=== PATIENT | male | born 2000 | race Caucasian/White ===

== ENCOUNTER 2022-11-20 13:45 | Emergency (ER) | payer OTHER, SELFPAY ==
--- NOTE | ~2022-11-20 | XR_ITS ---
EXAM: XR knee LT min 4V DATE: 11/20/2022 15:11 HISTORY: knee/calf pain, limping s/p fall off ladder . COMPARISON: None available. FINDINGS: Normal mineralization. No fracture or dislocation. No lytic or blastic lesion. Joint space s are maintained. No erosion or periosteal change. Soft tissues within normal limits. IMPRESSION: No acute osseous finding in the left knee. Reviewed, dictated and finalized at location K. [employer] SERV[employer]
[2022-11-20 14:20] VITALS: BP 143/76; PULSE 74; RESP 16; TEMP 36.8; O2SAT 96
--- NOTE | 2022-11-20 16:03 | ED.LOWEXIN ---
HPI - Extremity Injury (Lower) General Chief Complaint: Extremity Injury, Lower Stated Complaint: left leg injury - fell off ladder 6ft Time Seen by Provider: 11/20/22 15:32 History of Present Illness HPI Narrative: Patient is a 22-year-old male presenting with left knee pain. Patient was at work when he fell off of a ladder and fell straight down on his left leg. States that his knee locked up as he fell on it. States that he has had pain especially with ambulation since this time. States that he also has some pain in the back of his knee and upper calf. He denies striking his head or injuring anything else. States he took some Tylenol earlier which did provide some relief. Related Data Home Medications Medication Instructions Recorded Confirmed No Home Medications 11/20/22 Allergies Allergy/AdvReac Type Severity Reaction Status Date / Time No Known Allergies Allergy Verified 11/20/22 14:23 Review of Systems Review of Systems: All systems reviewed & are unremarkable except as noted in HPI and below Exam Narrative: GENERAL: Well-appearing, well-nourished, and in no acute distress. HEAD: Normocephalic, atraumatic. EYES: PERRLA and EOMI. ENT: Nares clear, no rhinorrhea or epistaxis. Mucous membranes moist. NECK: Supple. CHEST: Clear to auscultation. No respiratory distress. HEART: Regular rate and rhythm. No murmur heard. Normal peripheral pulses. ABDOMEN: Soft, nontender, nondistended, normal active bowel sounds. EXTREMITIES: Normal range of motion. Normal range of motion of left knee, tenderness along posterior aspect and to proximal left calf, no significant medial or lateral or anterior tenderness, distal DP/PT pulses 2+, no sensory deficits SKIN: Warm, dry, no rash. NEURO: No focal deficits. Alert and oriented x3. PSYCH: Normal mood and affect. Course Vital Signs Vital signs: Vital Signs Temperature 98.3 F 11/20/22 14:20 Pulse Rate 74 11/20/22 14:20 Respiratory Rate 16 11/20/22 14:20 Blood Pressure 143/76 H 11/20/22 14:20 Pulse Oximetry 96 11/20/22 14:20 Oxygen Delivery Room Air 11/20/22 14:20 Temperature 98.3 F 11/20/22 16:34 Pulse Rate 76 11/20/22 16:34 Respiratory Rate 16 11/20/22 16:34 Blood Pressure 126/70 11/20/22 16:34 Pulse Oximetry 100 11/20/22 16:34 Oxygen Delivery Room Air 11/20/22 14:20 MDM - Extremity Injury (Lower) MDM Narrative Medical decision making narrative: Patient is a 22-year-old male presenting with left knee pain after falling off a ladder. X-ray shows no osseous abnormalities. Patient is neurovascularly intact. We will give a dose of IM Toradol for additional pain relief. We will provide crutches to keep weight off of the leg. Advised to follow-up with PCP as well as orthopedic surgery as needed. Appropriate return precautions given. Patient discharged in stable condition. Critical Care Time Critical Care Time Critical Care Time: No Discharge Plan Discharge Clinical Impression: Acute internal derangement of knee Patient Disposition: Home, Self-Care Condition: Stable Instructions: Antibiotic Form, Knee Pain (ED) Additional Instructions: Please follow-up with your primary care provider as well as orthopedic surgery as needed. Please use Tylenol and ibuprofen for pain control. Please apply ice for the first 24 hours. You may use crutches to keep weight off the affected knee. If your pain suddenly worsens, you develop numbness or weakness, or other concerning symptoms arise, please return to the ER. Prescriptions: No Action No Home Medications Follow-up/Referrals: Nikolai Tovar MD [Physician] - PHYSICIAN NOT ON STAFF,NONSTAFF [Primary Care Provider] - Stand Alone Forms: Work/School Release IP
[2022-11-20] MEDS: KETOROLAC 30 MG/ML VIAL (*BKC) IM (16:11)
[2022-11-20 16:34] VITALS: BP 126/70; PULSE 76; RESP 16; TEMP 36.8; O2SAT 100
== END 2022-11-20 16:36 | disposition home or self-care (01) ==
PROVIDERS: Emergency Provider Emergency Medicine
DX: M23.92 Unspecified internal derangement of left knee (principal); S89.92XA Unspecified injury of left lower leg, initial encounter; W11.XXXA Fall on and from ladder, initial encounter
CPT/HCPCS: 73564; 96372; 99283; J1885

== ENCOUNTER → 2023-06-17 14:20 | Outpatient (CLI) | payer OTHER, SELFPAY ==
--- NOTE | ~2023-06-17 | MR_ITS ---
EXAMINATION: MR knee LT wo con DATE: 06/17/2023 14:51 INDICATION: Left knee pain TECHNIQUE: Magnetic resonance imaging (MRI) of the left knee was performed without intravenous contra st. Sequences included coronal PD-weighted FSE, coronal PD-weighted FS FSE, sagittal T2-weighted FSE , sagittal PD-weighted FS FSE and axial PD weighted fat saturated FSE. COMPARISON: Left knee radiographs dated 11/20/2022 FINDINGS: Medial compartment: Medial meniscus is normal. Articular cartilage is normal. Lateral compartment: Vertically oriented linear increased signal extending to the inferior articular surface along the of the inner third and in the peripheral third of the posterior horn of the lateral meniscus, unclear wh ether these represent subcentimeter planes or a contiguous single complex tear. Articular cartilage i s normal. Patellofemoral compartment: Articular cartilage is normal. Ligaments and tendons: The anterior cruciate ligament is torn. Posterior cruciate ligament is normal. The medial collateral ligament and fibular collateral ligament complex are normal. The extensor mechanism is normal. The vi sualized medial and lateral hamstring tendons as well as the iliotibial band are normal. Fluid: Physiologic amount of fluid in the joint space. No loose osteochondral bodies identified. Osseous/other: Bone alignment is normal. No fracture or pathologic marrow replacing process. IMPRESSION: 1. Anterior cruciate ligament tear. 2. Vertical tear planes at the inner and peripheral thirds of the posterior horn of the lateral menis cus, unclear whether separate tear planes or single contiguous complex tear. Reviewed, dictated and finalized at location A. IMPRESSION: 1. Anterior cruciate ligament tear. 2. Vertical tear planes at the inner and peripheral thirds of the posterior hor n of the lateral meniscus, unclear whether separate tear planes or single melisa guous complex tear.
== END ==
PROVIDERS: PCP Emergency Medicine; Visit Provider Emergency Medicine
DX: S83.512D Sprain of anterior cruciate ligament of left knee, subsequent encounter (principal); X58.XXXD Exposure to other specified factors, subsequent encounter
CPT/HCPCS: 73721

== ENCOUNTER 2025-06-10 19:46 | Emergency (ER) | payer SELFPAY ==
--- OUTSIDE RECORDS SUMMARY | 2025-06-10 19:49 | XMS_ITS | Continuity of Care Document ---
Author Organization [facility] Address [address] [place] [address] [place] [address] Phone Care Team Providers Care Refrigeration Service Technician Name Role Phone Jake West MD Unavailable Unavailable Allergies, Adverse Reactions, Alerts Substance Reaction Status Criticality No Known Allergies Active No Inform ation Procedures Procedure Date PREV VISIT, EST, AGE 18-39 OFFICE/OUTPATIENT VISIT, EST PREV VISIT, NEW, AGE 18-39 OFFICE/OUTPATIENT VISIT, NEW Advance Directives Directive Yes / No Effective Date File Name No Information Encounters Encounter Description Practice Location Reason(s) For Visit Diagnoses Date Provider Providers Copied on Encounter PREV VISIT, EST, AGE 18-39 [facility], [address] [place], [place], [id number], tel:[phone] [facility] physical (chief complaint) Encounter for general adult medical examination without abnormal findings 4 Brett Joseph. [address] [place], [id number] , [place]. tel:[phone] OFFICE/OUTPAT IENT VISIT, EST [facility], [address] [place], [place], [id number], [place] tel:[phone] [facility] knee pain1 (chief complaint) Pain in left knee 3 Brett Joseph. [address], [place], [place], [id number] , [place]. tel:[phone] PREV VISIT, NEW, AGE 18-39 [facility], [address] [place], [place], [id number], [place] tel:[phone] [facility] physical (chief complaint) Encounter for general adult medical exam w abnormal findingsPatellar tendinitis, left knee 3 West Jake. [address], [place], [place], [id number] , [place]. tel:[phone] Family History Family Member Type Diagnosis Age At Onset Father Problem Alive and well Mother Problem Alive and well Sister Problem Alive and well Payers Payer name Insurance type Covered green party ID Authoriza tion(s) No Information Social History Type Description Quantity Date Captured Comments Alcohol Use Details No Caffeine Use Details Unknown Tobacco Use Status Current non-smoker Smoking Status Never smoker Sex Male Vital Signs Date / Time: Height Weight BMI Pulse Rate Blood Pressure Temperature Respiratory Rate Body Surface Area Head Circumference BMI percentile Pulse Ox Inhaled Ox 2:25 PM 64.00 in 202.80 lbs 34.8 1 kg/m eter (2) 67 /min 130/72 mm[Hg] 98.0 F 16 /min Chief Complaint And Reason For Visit From encounter dated '06/30/2024 14:19'. physical (chief complaint). 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 Pt overall feels well Pt denies any active complaints Plan Of Treatment Date Type Action Status Referral Ordered: [facility] -Allopathic & Osteopathic Physicians : Orthopaedic Surgery (related to Pain in left knee) ordered Referral Ordered: MRI JNT OF LWR EXTRE W/O DYE Left knee ordered Referral Referred To: [facility] [address], [place], [id number] Ordered: Referrals: Allopathic & Osteopathic Physicians : Orthopaedic Surgery. [facility]. Evaluate and treat ordered Referral Ordered: Physical Therapy (related to Encounter for general adult medical examination without abnormal findings) ordered Referral Referred To: Physical Therapy Ordered: Referrals: Physical Therapy. 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 Pt overall feels well Pt denies any active complaints knee pain1 Pt c/o persisten t dull and sharp left knee pain around left patella area for 6 months Pt notices intermittent left knee swelling as well, especially after standing on it for long time Pt also has pain at night when resting Pt denies any redness or warmth Pt denies any calf pain pt has done 12 sessions of PT but has not helped. Pt states that sometimes he feels that his left knee is giving out as well physical Pt needs annual physical Pt fell off ladder around 4 feet about 4 months ago and he fell on left foot and he started to have left knee pain after he fell Pt did notice left knee swelling shortly afterward but the swelling resolved now. Pt c/o persistent left knee pain, dull in nature, especially after standing on his feet all day Pt denies any night time pain. Pt states that he feels that his left knee dov sometimes. He c/o left anterior lower patella area pain. Pt went to ER and had negative left knee x ray several months ago pt denies any other complaints Instructions Date Instruction Additional Infor mation No Information Assessments Type Assessment Date assessment Encounter for genera l adult medical examination without abnormal findings Mental Status Date Cognitive Assessment Orientation - Onida ed to time, place, person, situation.
--- OUTSIDE RECORDS SUMMARY | 2025-06-10 19:49 | XMS_ITS | Continuity of Care Document ---
Author Organization [facility] Address [address] [place] [address] Phone Care Team Providers Care Division Operations Manager Name Role Phone Ramirez Rod PT Unavailable Unavailable Procedures Procedure Date Progress Note Therapeutic Activities Neuromuscular Re-Ed Therapeutic Exercise Therapeutic Activities Neuromuscular Re-Ed Electrical Stimulation Therapeutic Exercise Therapeutic Activities Neuromuscular Re-Ed Manual Therapy Therapeutic Activities Neuromuscular Re-Ed Manual Therapy Hot or Cold Pack Therapeutic Activities Neuromuscular Re-Ed Therapeutic Activities Neuromuscular Re-Ed Therapeutic Exercise Manual Therapy Therapeutic Activities Neuromuscular Re-Ed Therapeutic Exercise Manual Therapy Therapeutic Activities Neuromuscular Re-Ed Therapeutic Exercise Manual Therapy Therapeutic Activities Neuromuscular Re-Ed Therapeutic Exercise Therapeutic Activities Neuromuscular Re-Ed Therapeutic Exercise PT Evaluation Low Complexity Therapeutic Activities Neuromuscular Re-Ed Advance Directives Directive Yes / No Effective Date File Name No Information Encounters Encounter Description Practice Location Reason(s) For Visit Diagnoses Date Provider Providers Copied on Encounter [facility], [address] [address], [place], [place], [id number], tel:[phone] [place] No Information 3 Dellamano Ramirez. . [facility] [address], [place], [place], [id number], tel:[phone] [place] No Information 3 Dellamano Ramirez. . Referring Provider: Bunny Allen [facility] [address], [place], [address]. tel:[phone] [facility] [address] [place] [address], [id number], tel:[phone] [place] No Information 3 Muehl Richardson. [address] [facility], [address], [facility], [place]. tel:[phone] Referring Provider: Bunny Allen [facility], [place], [address]. tel:[phone] [facility] [address] [place] [address], [id number], tel:[phone] [place] No Information 3 Muehl Richardson. [address] [facility], [facility] [address], [place], [facility], [place]. tel:[phone] Referring Provider: Bunny Allen [facility], [place], [address]. tel:[phone] [place] [address], [id number], tel:[phone] [place] No Information 3 Short Thania. . Referring Provider: Bunny Allen [facility], [place], [address]. tel:[phone] [facility] [address], [place], [place], [id number], [place] tel:[phone] [place] No Information Javon-1 2-202 3 Modglin Dorian. . Referring Provider: Bunny Allen [address], [place], [address]. tel:[phone] [place] [address] [address], [place], [place], [id number], [place] tel:[phone] [place] [address] No Information Javon-0 9-202 3 Modglin Dorian. . Referring Provider: Bunny Allen [address], [place], [address]. tel:[phone] [place] [address] [address], [place], [place], [id number], [place] tel:[phone] [place] No Information Javon-0 5-202 3 Dellamano Ramirez. . Referring Provider: Bunny Allen [address], [place], [address]. tel:[phone] [place] [address] [address] [facility] [facility], [place], [place], [id number], [place] tel:[phone] [place] No Information Javon-0 2-202 3 Dellamano Ramirez. . Referring Provider: Bunny Allen [address], [place], [address]. tel:[phone] [place] [address] [address], [place], [place], [id number], [place] tel:[phone] [place] No Information March-3 0-202 3 Dellamano Ramirez. . Referring Provider: Bunny Allen [address], [place], [address]. tel:[phone] [place] [address] [address], [place], [place], [id number], [place] tel:[phone] [place] No Information May-2 6-202 3 Dellamano Ramirez. . Referring Provider: Bunny Allen [address], [place], [address]. tel:[phone] [facility], [address], [place], [place], [id number], tel:[phone] [place] No Information Marcel Guzmán. . Referring Provider: Jake West, [address], [place], [address]. tel:[phone] Family History Family Member Type Diagnosis Age At Onset No Information Payers Payer name Insurance type Covered libertarian ID Authoriza tion(s) No Information Social History Type Description Quantity Date Captured Comments Sex Male Smoking Status No Information Chief Complaint And Reason For Visit No Information Reason For Referral Reason For Referral No Information Plan Of Treatment Date Type Action Status Referral Ordered: PCP timeframe: 1 week. (related to Overweight) ordered Referral Ordered: Weight management: Referral to physician timeframe: 1 Month. (related to Overweight) ordered History Of Present Illness Encounter Date Complaint History Of Prese nt Illness No Information Functional Status Date Functional Assessmen t No Information Instructions Date Instruction Additional Infor mation No Information Assessments Type Assessment Date No Information Patient Care Teams Name Effective Dates (start - stop) Status Members No Information
--- OUTSIDE RECORDS SUMMARY | 2025-06-10 19:49 | XMS_ITS | Clinical Summary ---
Author Organization [facility] Address [address] [place] [address] Care Team Providers Care Pocket Closer Name Role Phone Unavailable Primary Care Provider Unavailabl e Source Comments [facility],non-owned Affiliates and Associated Physician Practices is amultiple site organization consisting of ambulatory clinics and hospital sitesin [place], [place], [place] and [place]. This disclosure is being madepursuant to the Care Everywhere program and may not contain all information available regarding this patient. Last updated 18.[facility] Allergies No known active allergies Medications * Be aware that medications may not be up to date on this document. Alwaysverify current medications with the patient. 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 Gender Identity Not on file Sexual Orientation Not on file Last Filed Vital Signs Vital Sign Reading Time Taken Comments Blood Pressure 126/78 01/01/2020 12:20 PM RENEWABLE ENERGY PROJECT MANAGER Pulse 76 01/01/2020 12:17 PM RENEWABLE ENERGY PROJECT MANAGER Temperature 37.1 C (98.7 F) 01/01/2020 12:17 PM RENEWABLE ENERGY PROJECT MANAGER Respiratory Rate 16 01/01/2020 12:17 PM RENEWABLE ENERGY PROJECT MANAGER Oxygen Saturation 99% 01/01/2020 12:17 PM RENEWABLE ENERGY PROJECT MANAGER Inhaled Oxygen Concentration - - Weight 87.1 kg (192 lb) 01/01/2020 12:17 PM RENEWABLE ENERGY PROJECT MANAGER Height 163.8 cm (5' 4.5) 01/01/2020 12:17 PM CS T Body Mass Index 32.45 01/01/2020 12:17 PM RENEWABLE ENERGY PROJECT MANAGER Plan of Treatment Health Maintenance Due Date Last Done Comments HIV SCREENING 2017 HPV VACCINE (1 - Male 3-dose series) 2017 MENINGOCOCCAL (Group B) VACC INE SHARED DECISION-MAKING (1 of 2 - Standard) 2018 HEPATITIS C SCREENING 04/06/2020 DTAP/TDAP/TD VACCINES (1 - Tdap) 2021 HEPATITIS B VACCINE (1 of 3 - 19+ 3-dose series) 2021 COVID-19 VACCINE (1 - 2023-2 5 season) 2024 DEPRESSION SCREENING 11/24/2024 INFLUENZA VACCINE (#1) 2025 ZOSTER VACCINE (1 of 2) 2052 HIB VACCINE Aged Out No longer eligi ble based on patient's age to complete this topic MENINGOCOCCAL GROUPS A/C/Y/W VACCINE Aged Out No longer eligible b ased on patient's age to complete this topic PNEUMOCOCCAL VACCINE Aged Out No long er eligible based on patient's age to complete this topic
--- OUTSIDE RECORDS SUMMARY | 2025-06-10 19:49 | XMS_ITS | Data Portability ---
[facility] [address] [place] [address] [place] [address] Assessment Encounter Date Assessment Date Assessment LastModified by Organization Details LastModified Time 02/18/2025 02/18/2025 Patient here for medical screening to get a TB skin test for work Exam within normal limits patient denies any acute complaints Plan to order the labs as requested Provided pt return precautions as needed. Not available 02/18/2025 19:55:32 Plan of Treatment Reminders Order Date Submit Date Provider Last Modified By Organization Details Last Modified Time Details Appointments None recorded. Lab PPD (purified protein derivativ e), skin test 2024 025 SUSANA In-Office Order, Internal Use Only DO Not Attach Compendium DO Not Attach Compendium, Do Not Delete/merge, [id number] 12:41:45 Referral None recorded. Procedures None recorded. Surgeries None recorded. Imaging None recorded. Medication Orders Tubersol 5 tub. unit/0.1 mL intraderm al injection solution 2024 025 [email or web address] Not available 20:18:04 Patient TargetsNo targets recorded. Patient Instructions Encounter Date Encounter Id Patient Instructions Last Modified By Organization Details Last Modified Time 02/18/2025 [id number] A healthy lifestyle: care instructions Not available 02/18/2025 19:55:08 Your TB test chip l need to be read within 48-72 hours You may return here to have that completed Continue to follow up with your PCP for your routine visits As always you can return here for any other concerns, thank you for choosing [facility]. Not available 02/18/2025 19:55:36 Reason for Referral None Reported. Results Created Date Observation Date Name Description Value Unit Range Abnormal Flag Note LastModifiedBy Organization Detail LastModifiedTime 02/22/2002/21/2025 PPD (leah fied prote in deriv ative ), skin test Result Negati ve Not Available In-Office Order Internal Use Only DO Not Attach Compendium DO Not Attach Compendium, Do Not Delete/merge, [id number] 02/18/2025 19:55:00 Result Notes None recorded. Problems No Known Problems Medical Equipment None Reported. Allergies No known drug allergies Medications Name Sig Start Date Stop Date Status Note LastModified by Organization Details LastModified Time Tubersol 5 tub. unit/0.1 mL intradermal injection solution Administer .1ml interdermal ly 2024 active Not Available Not Available Not Avai lable Vitals Date Recorded Body height Body mass index (BMI) Body weight Oxygen saturation Oxygen saturation in Arterial blood by Pulse oximetry Heart rate Respiratory rate Body temperature Systolic And Diastolic Provider Name and Address Organization Details Last Updated DateTime 162.56 cm 34.9 kg/m2 93290.9 7 g 98 % 98 % 86 /min 16 /min 98.1 [degF] 130/81 mm[Hg] Mary Sahu MA [facility] 19:52:18 Social History Question Answer Notes LastModified by Organizat ion Details LastModified Time Tobacco Smoking Status Never Smoker Mary Sahu [place] null, [place] - [place] 02/18/2025 19:53:28 Are You Blind Or Do You Have Difficulty Seeing? No Information not available 02/18/2025 What Is Your Level Of Caffeine Consumption? Occasional Information not available 02/18/2025 Are You Deaf Or Do You Have Serious Difficulty Hearing? No Information not available 02/18/2025 What Type Of Diet Are You Following? REGULAR Information not available 02/18/2025 Are There Any Guns Present In Your Home? No Information not available 02/18/2025 What Was The Date Of Your Most Recent Tobacco Screening? 02/18/2025 Information not available 02/18/2025 Do You Use Your Seat Belt Or Car Seat Routinely? Yes Information not available 02/18/2025 Do You Have Smoke And Carbon Monoxide Detectors In Your Home? Yes Information not available 02/18/2025 Are You Passively Exposed To Smoke? No Information not available 02/18/2025 Do You Use Sunscreen Routinely? No Information not available 02/18/2025 Has Tobacco Cessation Counseling Been Provided? No Information not available 02/18/2025 Sex: Male Functional Status Question Answer Note LastModified by Organizat ion Details LastModified Time Do you use any illicit or recreational drugs? No Information not available 02/18/2025 Do you or have you ever used any other forms of tobacco or nicotine? No Information not available 02/18/2025 What is your level of alcohol consumption? None Information not available 02/18/2025 Are you able to care for yourself? Yes Information not available 02/18/2025 What is your exercise level? None Information not available 02/18/2025 Mental Status Question Answer Note LastModified by Organization D etails LastModified Time Do you feel stressed (tense, restless, nervous, or anxious, or unable to sleep at night)? [id number] Information not available 02/18/2025 Family History Relationship Description Onset Age of this Age Resolved Age Notes LastModified by Organization Details LastModified Time Father No current problems or disability [email or web address] Not available 01/23 19:53:13 Mother No current problems or disability [email or web address] Not available 01/23 19:53:13 Medical History Condition Response Coronary Artery Disease N Other N Atrial Fibrillation N High Blood Pressure N Thyroid Problems N Kidney or Bladder Problems N Depression N COPD N Blood Clots N GI Problems N Have you had a mammogram in the last yea r? N Skin Problems N Eating Disorder N Anemia N Heart Attack ([place]) N Diabetes N Anxiety Disorder N Muscle, Joint, or Bone Problems N Seizures/Epilepsy N Have you had a colonoscopy in the last 1 0 years? N Arthritis N Acid Reflux (GERD) N Cancer N Stroke N Allergies N Asthma N Have you had a PSA blood test in the las t year? N ADHD N Substance Abuse N High Cholesterol N Hepatitis N Liver Disease N Schizophrenia N Headaches N Osteoporosis N Heart Failure N Past Encounters Encounter ID Performer Location Encounter Start Date Encounter Closed Date Diagnosis/Indication Diagnosis SNOMED-CT Code Diagnosis ICD10 Code Diagnosis Note [id number] [facility] [address] 02/18/2025 19:41:49 02/21/2025 17:10:52 Obesity 903194172 E66.9 Tuberculos is screening 924594090 Z11.1 Health Concerns Section Related Observation LastModified by Organization Detai ls LastModified Time None Recorded Concern Status LastModified by Organization Details LastModified Time None Recorded Advance Directives Directive None Recorded Payers Insurance Date Sequence Insurance Name Policy Number Policy Leigh Covered Member ID Leigh Member ID Guarantor Name 02/22/2025 1 WEST - [facility]WEST () Rick Alberto [id number] David Mosley 02/22/2025 1 EAST - HUMAN () Bre Dominguez [id number] David Mosley 02/22/2025 2 EAST - [facility] () David Mosley [id number] David Mosley 02/18/2025 1 EAST - HUMAN () Bre Dominguez [id number] David Mosley Notes Date Note Type Note Provider Name and Address Organization Details Recorded Time 02/18/2025 text/html David Mosley is a 4 2 y/o male who presents today to get a TB skin test for work. This is his second test. Denies any medical complaints or concerns. PJ MURILLO NP Attn: [employer]ing,[address] [place], [address], [facility] 02/18/2025 19:56:36
[2025-06-10 20:04] VITALS: BP 158/91; PULSE 108; RESP 16; TEMP 36.8; O2SAT 99
--- NOTE | 2025-06-10 21:30 | PC.NURSE ---
Patient approached triage desk stating that he was going to leave because he scheduled an appointment with urgent care for in the morning. Pt ambulatory to ED exit with steady gait and no signs for concern at this time.
--- OUTSIDE RECORDS SUMMARY | 2025-06-10 23:10 | XMS_ITS | Clinical Summary ---
Author Organization [facility] Address [address] [place] [address] Care Team Providers Care Wet Wheeler Name Role Phone Unavailable Primary Care Provider Unavailabl e Source Comments [facility],non-owned Affiliates and Associated Physician Practices is amultiple site organization consisting of ambulatory clinics and hospital sitesin [place], [place], [place] and [place]. This disclosure is being madepursuant to the Care Everywhere program and may not contain all information available regarding this patient. 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
--- OUTSIDE RECORDS SUMMARY | 2025-06-10 23:10 | XMS_ITS | Continuity of Care Document ---
Author Organization [facility] Address [address] [place] [address] Phone Care Team Providers Care Rolled Ham Lacer Name Role Phone Jake West MD Unavailable [...] on Encounter PREV VISIT, EST, AGE [age] [facility], [address] [place], [place], [id number], tel:[phone] [facility] physical (chief complaint) Encounter for general adult medical examination without abnormal findings 4 Brett Joseph. [address] [facility] [place], [id number] , [place]. tel:[phone] OFFICE/OUTPAT IENT VISIT, EST [facility], [address] [place], [id number], [place] tel:[phone] [facility] knee pain1 (chief complaint) Pain in left knee 3 Brett Joseph. [address], [place], [place], [id number] , [place]. tel:[phone] PREV VISIT, NEW, AGE 18-41 [facility], [address] [place], [id number], [place] tel:[phone] [facility] physical (chief complaint) Encounter for general adult medical exam w abnormal findingsPatellar tendinitis, left knee 3 West Jake. [address], [place], [place], [address] , [place]. 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 Pt overall [...] Mental Status Date Cognitive Assessment Orientation - [place] ed to time, place, person, situation.
--- OUTSIDE RECORDS SUMMARY | 2025-06-10 23:10 | XMS_ITS | Continuity of Care Document ---
Author Organization [facility] Address [address] [place] [address] Phone Care Team Providers Care Lead Shop Operator Name Role Phone Ramirez Rod PT Unavailable [...] Diagnoses Date Provider Providers Copied on Encounter [facility], [address] [address], [place], [place], [id number], tel:[phone] Clarence No Information 3 Dellamano Ramirez. . [facility] [address], [place], [place], [id number], tel:[phone] Clarence No Information 3 Dellamano Ramirez. . Referring Provider: Bunny Allen [facility] [address], [place], [address]. tel:[phone] [facility] [address] [place] [address], [id number], tel:[phone] Clarence No Information 3 Muehl Richardson. [address] [facility], [address], [facility], [place]. tel:[phone] Referring Provider: Bunny Allen [facility], [place], [address]. tel:[phone] [facility] [address] [place] [address], [id number], tel:[phone] Clarence No Information 3 Muehl Richardson. [address] [facility], [facility] [address], [place], [facility], [place]. tel:[phone] Referring Provider: Bunny Allen [facility], [place], [address]. tel:[phone] [place] [address], [id number], tel:[phone] Clarence No Information 3 Short Thania. . Referring Provider: Bunny Allen [facility], [place], [address]. tel:[phone] [facility] [address], [place], [place], [id number], [place] tel:[phone] Clarence No Information Javon-1 2-202 3 Modglin Dorian. . Referring Provider: Bunny Allen [address], [place], [address]. tel:[phone] [place] [address] [address], [place], [place], [id number], [place] tel:[phone] [place] [address] No Information Javon-0 9-202 3 Modglin Dorian. . Referring Provider: Bunny Allen [address], [place], [address]. tel:[phone] [place] [address] [address], [place], [place], [id number], [place] tel:[phone] Clarence No Information Javon-0 5-202 3 Dellamano Ramirez. . Referring Provider: Bunny Allen [address], [place], [address]. tel:[phone] [place] [address] [address] [facility], [place], [place], [id number], [place] tel:[phone] Clarence No Information Javon-0 2-202 3 Dellamano Ramirez. . Referring Provider: Bunny Allen [address], [place], [address]. tel:[phone] [place] [address] [address], [place], [place], [id number], [place] tel:[phone] Clarence No Information March-3 0-202 3 Dellamano Ramirez. . Referring Provider: Bunny Allen [address], [place], [address]. tel:[phone] [place] [address] [address], [place], [place], [id number], [place] tel:[phone] Clarence No Information May-2 6-202 3 Dellamano Ramirez. . Referring Provider: Bunny Allen [address], [place], [address]. tel:[phone] [facility], [address], [place], [place], [id number], tel:[phone] Clarence No Information Marcel Guzmán. . Referring Provider: Jake West, [address], [place], [address]. tel:[phone] Family History Family Member Type Diagnosis Age At Onset No Information Payers Payer name Insurance type Covered green [...]
== END 2025-06-10 23:32 | disposition left against medical advice (07) ==
DX: K08.89 Other specified disorders of teeth and supporting structures (principal)
CPT/HCPCS: 99199